=== PATIENT | female | born 1970 | race Caucasian/White ===

== ENCOUNTER 2018-08-15 09:23 | Emergency (ER) | payer OTHER ==
[~2018-08-15] VITALS: Ht 167.6 cm; Wt 81.6 kg
[2018-08-15 09:26] VITALS: Ht 167.6 cm; Wt 81.6 kg
[2018-08-15 10:59] VITALS: BP 138/93
== END 2018-08-15 10:59 | disposition home or self-care (01) ==
LOC: ED 09:23
DX: K12.2 Cellulitis and abscess of mouth (principal); F17.210 Nicotine dependence, cigarettes, uncomplicated
CPT/HCPCS: J1200; J2930

== ENCOUNTER 2020-06-19 06:20 | Emergency (ER) | payer OTHER ==
[~2020-06-19] VITALS: Ht 167.6 cm; Wt 75.3 kg
[2020-06-19 06:26] VITALS: Ht 167.6 cm; Wt 75.3 kg
[2020-06-19 08:29] VITALS: BP 135/78
== END 2020-06-19 08:29 | disposition home or self-care (01) ==
LOC: ED 06:20
DX: L03.113 Cellulitis of right upper limb (principal); W55.01XA Bitten by cat, initial encounter; Y93.89 Activity, other specified; Y92.89 Other specified places as the place of occurrence of the external cause; Y99.8 Other external cause status
CPT/HCPCS: 90715; J1885; J2270; Q0162

== ENCOUNTER 2020-06-20 10:30 | Emergency (ER) | payer OTHER ==
[~2020-06-20] VITALS: Ht 167.6 cm; Wt 77.1 kg
[2020-06-20 10:39] VITALS: Ht 167.6 cm; Wt 77.1 kg
[2020-06-20 17:20] VITALS: BP 138/80
== END 2020-06-20 17:21 | disposition home or self-care (01) ==
LOC: ED 10:30
DX: L03.113 Cellulitis of right upper limb (principal); W55.01XA Bitten by cat, initial encounter; Y93.89 Activity, other specified; Y92.89 Other specified places as the place of occurrence of the external cause; Y99.8 Other external cause status
CPT/HCPCS: J0456; J2405; J3010

== ENCOUNTER 2020-06-22 20:27 | Inpatient (IN) | payer OTHER ==
[~2020-06-22] VITALS: Ht 167.6 cm; Wt 79.4 kg
[2020-06-22 20:34] VITALS: Ht 167.6 cm; Wt 79.4 kg
--- NOTE | 2020-06-22 20:55 | NUR ---
PT BIB BROTHER C/O CAT BITE ON 06/18/20. PT [place]PORTS [place] [facility] [place]AL ANTIBIOTICS AT D/C. PT R WRIST APPEARS TO BE RED AND SWOLLEN. PT REPORTS PAIN 9/10 AT THIS TIME. PT NAD NOTED, RESP E/U, AAOX4 LYING ON GURNEY IN LOWEST POSITION AND SIDE RAILSX2 FOR SAFETY
--- NOTE | 2020-06-22 21:15 | NUR ---
PT REPORTS TAKING "HALF AN OCYCOTIN AT 1530" FOR THE PAIN
[2020-06-22 21:20] LABS: BASOPHIL % 1.1 % (0.2-1.3); PLATELET COUNT 309 x10^3mcL (179-408); RED CELL DISTRIBUTION WIDTH 13.2 % (12.3-17.7)
[2020-06-22 21:34] LABS: CALCIUM 9.1 mg/dL (8.5-10.1); CARBON DIOXIDE 26.6 mmol/L (21-32); CHLORIDE SERUM 100 mmol/L (98-107); CREATININE SERUM 0.6 mg/dL (0.6-1.0); GFR1 > 60 mL/min; GLUCOSE SERUM 120 mg/dL (74-106); POTASSIUM SERUM 3.6 mmol/L (3.5-5.1); SODIUM SERUM 137 mmol/L (136-145)
[2020-06-22 21:39] LABS: ALKALINE PHOSPHATASE 76 U/L (46-116); ALT/SGPT 33 U/L (14-59); AST/SGOT 14 U/L (15-37); BILIRUBIN TOTAL 0.2 mg/dL (0.20-1.00); TOTAL PROTEIN, SERUM 6.6 g/dL (6.4-8.2)
--- NOTE | 2020-06-22 21:40 | NUR ---
NURSE JAI RN ATTEMPTED PLACING IV, UNSUCCESSFUL. NURSE BRANDON ELAINE LOOKING NOW
[2020-06-22 21:44] LABS: ALBUMIN 2.9 g/dL (3.4-5.0)
--- NOTE | 2020-06-22 22:33 | NUR ---
PT IN [facility], NAD NOTED, RESP E/U, AAOX4. UNABLE TO BEING IV MEDICINE AND FLUIDS BEING THAT MYSELF, BRANDON RN, JAI RN, AND NAKUL RN WERE UNABLE TO START IV. NAKUL ELAINE INFORMED ME THAT JEAN SANCHEZ WILL BEGIN AN ULTRASOUND GUIDED IV. AWAITNG IV PLACEMENT TO START MEDS ON EMAR.
--- NOTE | 2020-06-22 22:39 | NUR ---
PT AMBULATED TO RESTROOM TO URINATE--PROVIDING URINE COLLECTION
--- NOTE | 2020-06-22 22:50 | NUR ---
JEAN SANCHEZ AT BEDSIDE PERFORMING ULTRASOUND GUIDED IV
--- NOTE | 2020-06-22 23:44 | NUR ---
JEAN SANCHEZ STARTED 18G ULTRASOUND GUIDED IV ON R BICEP
--- NOTE | 2020-06-23 00:40 | NUR ---
PREVIOUS IV INSERTED BY PA PENA NOT PATENT, PT COMPLAINING OF PRESSURE IN RIGHT BICEP, DR. ROUSE BEDSIDE FOR IV ASSESSMENT, RIGHT BICEP IV INFILTRATING, INSTRUCTED TO REMOVED, DR. ROUSE INSERTED NEW 20G IV IN RIGHT FOREARM VIA US, IV PATENT, FLUSHED WITH 10mL NS WITHOUT DIFFICULTY, GOOD BLOOD RETURN, NO COMPLICATIONS, HEMATOMA, OR SIGNS OF INFILTRATION.
--- NOTE | 2020-06-23 01:10 | NUR ---
PT IN GURNEY SLEEPING, EASY TO AROUSE. PT DENIES HAVING ANY BELONGINGS AND STS SHE DOES NOT TAKE ANY MEDICATIONS AT HOME. PT NAD NOTED, RESP E/U, SLEEPING IN GURNEY AT LOWEST POSITION, SIDE RAILSX2 FOR SAFETY
--- NOTE | 2020-06-23 01:42 | NUR ---
SPOKE TO PHARMACY ABOUT VANCOMYCIN ORDER. PHARMACY STS THAT HE WILL REACTIVATE THE VANCOMYCIN ORDER AND THAT THE MORNING PHARMACY WITH DOSE AND TIME THE Q6 VANCOMYCIN ORDER. MD STS THAT HE WOULD LIKE BOTH UNASYN AND VANCO ANTIBIOTICS Q6H. STS THAT HE WOULD LIKE PHARMACY TO DOSE AND TIME THE VANCOMYCIN WELL
--- NOTE | 2020-06-23 02:00 | NUR ---
PT HANDS APPEAR TO BE SWOLLEN, MD MADE AWARE. PER MD ORDER, TO PUT ICE PACKS AND CONTINUE TO MONITOR CLOSELY.
--- NOTE | 2020-06-23 02:16 | NUR ---
UNABLE TO BEGIN VANCOMYCIN AND 0.9NS IV FLUIDS STOPPED PER MD ORDER. WILL BEGIN INFUSIONS UPON OK
--- NOTE | 2020-06-23 02:52 | NUR ---
PT REASSESS BY LEILANI TARANGO TO GO UP TO MEDICAL SURGICAL. VANCOMYCIN INFUSION BEGUN AND SENT UP WITH PT.
[2020-06-23 06:08] VITALS: BP 113/61
[2020-06-23 08:26] VITALS: BP 117/68
--- NOTE | 2020-06-23 10:17 | NUR ---
PATIENT SITTING UP ON SIDE OF BED EATING BREAKFAST. REDNESS AND EDEMA TO RIGHT ARM. DENIES NEEDING ANYTHING AT THIS TIME. BED LOCKED IN LOWEST POSITION. CALL LIGHT IN REACH.
[2020-06-23 12:15] VITALS: BP 139/89
[2020-06-23 16:44] VITALS: BP 138/88
--- NOTE | 2020-06-23 19:30 | NUR ---
RECEIVED PT FROM DAY SHIFT NURSE. PT AWAKE, A&O X4. DENIES SRINIVASAN OR DIZZINESS. ABLE TO MAKE NEEDS KNOWN. SPEECH IS CLEAR. PT IS MED-SURG. DENIES CHEST PAIN OR PRESSURE. RR EVEN AND UNLABORED ON RA. ERYTHEMA AND EDEMA NOTED TO RIGHT ARM. IV SITE PATENT AND INTACT. BED IN LOWEST POSITION. CALL LIGHT WITHIN REACH. SIDE RAILS UP X2.
[2020-06-23 20:00] VITALS: BP 129/77
--- NOTE | 2020-06-23 23:45 | NUR ---
PT C/O 12/07 RIGHT HAND/FOREARM PAIN, MEDICATED PER EMAR.
--- NOTE | 2020-06-24 00:46 | NUR ---
PT SLEEPING COMFORTABLY IN BED. NO S/S OF ACUTE DISTRESS. NO C/O OF PAIN OR DISCOMFORT. RR EVEN AND UNLABORED ON RA. BED IN LOWEST POSITION. CALL LIGHT WITHIN REACH. SIDE RAILS UP X2.
--- NOTE | 2020-06-24 04:36 | NUR ---
PT C/O 12/07 RIGHT HAND/RIGHT WRIST PAIN, REQUESTING PAIN MEDICATION. MEDICATED PER EMAR.
[2020-06-24 05:08] VITALS: BP 152/89
--- NOTE | 2020-06-24 06:24 | NUR ---
PT SLEEPING COMFORTABLY IN BED. NO S/S OF ACUTE DISTRESS. NO C/O OF PAIN OR DISCOMFORT. RR EVEN AND UNLABORED ON RA. ALL NEEDS MET DURING SHIFT. BED IN LOWEST POSITION. CALL LIGHT WITHIN REACH. SIDE RAILS UP X2. WILL ENDORSE CARE TO ONCOMING DAY SHIFT NURSE.
[2020-06-24 06:32] LABS: BASOPHIL % 0.3 % (0.2-1.3); PLATELET COUNT 354 x10^3mcL (179-408); RED CELL DISTRIBUTION WIDTH 12.5 % (12.3-17.7)
[2020-06-24 06:33] LABS: CALCIUM 9.1 mg/dL (8.5-10.1); CARBON DIOXIDE 27.1 mmol/L (21-32); CHLORIDE SERUM 102 mmol/L (98-107); CREATININE SERUM 0.7 mg/dL (0.6-1.0); GFR1 > 60 mL/min; GLUCOSE SERUM 105 mg/dL (74-106); POTASSIUM SERUM 3.5 mmol/L (3.5-5.1); SODIUM SERUM 137 mmol/L (136-145)
[2020-06-24 07:58] VITALS: BP 134/79
[2020-06-24 11:40] VITALS: BP 135/87
[2020-06-24] MEDS ORDERED: BACTRIM DS1 TAB PO (14:39)
[2020-06-24] MEDS ORDERED: AUGMENTIN 875-1 EACH PO (14:39)
[2020-06-24 14:45] VITALS: BP 135/87
--- NOTE | 2020-06-24 15:04 | NUR ---
WENT OVER DISCHARGE PAPERWORK WITH PATIENT. ANSWERED ALL QUESTIONS. 2 ANTIBIOTICS CALLED IN TO PHARMACY BY MD. NOTIFIED PATIENT TO DIRECT [facility]STER MEDICATIONS. REMOVED IV INTACT, NO PROBLEMS. MED SURG PATIENT, NO TELE. PATIENT IS GETTING DRESSED AND READY, WILL NOTIFY STAFF WHEN READY AND RIDE IS HERE. WILL LEAVE IN PRIVATE VEHICLE WITH ALL PERSONAL BELONGINGS. INSTRUCTED TO GO SEE HER DOCTOR, ALSO TO GO TO ER IF PAIN AND SWELLING WORSENS.
== END 2020-06-24 15:17 | disposition home or self-care (01) | DRG 383 ==
LOC: ED 20:27 → MU 23:21
PROVIDERS: Emergency Medicine; ADMIT Internal Medicine; ATTEND Internal Medicine
DX: L03.113 Cellulitis of right upper limb (principal); F17.210 Nicotine dependence, cigarettes, uncomplicated; Z20.822 Contact with and (suspected) exposure to COVID-19; Z79.899 Other long term (current) drug therapy; Z79.891 Long term (current) use of opiate analgesic; Z79.01 Long term (current) use of anticoagulants
CPT/HCPCS: G0378; J0295; J1650; J1885; J3370; J7030